=== PATIENT | male | born 2000 | race Caucasian/White ===

== ENCOUNTER 2024-01-26 13:35 | Emergency (ER) | payer OTHER, SELFPAY ==
[2024-01-26 13:44] VITALS: BP 136/81; PULSE 81; RESP 16; TEMP 37.4; O2SAT 100
--- NOTE | 2024-01-26 13:56 | PC.NURSE ---
in br to obtain ua spec.
--- NOTE | 2024-01-26 14:39 | ED_ITS ---
HPI - Male Genitourinary General Chief complaint: Urogenital-Male Stated complaint: STD Exposed Time Seen by Provider: 01/26/24 14:20 Source: patient, RN notes reviewed and old records reviewed Mode of arrival: ambulatory Limitations: no limitations History of Present Illness HPI Narrative: 23year old male presents to express care with concern for exposure to STD. Patient reports that he has no pain with urination or and penis drainage or any discomfort or swelling to testicles. Patient reports that he had unprotected sex about 2 weeks ago and was notified by partner that she tested positive for Trichomoniasis. Patient reports no fevers or any urinary frequency urgency or any foul odor of urine. MD Complaint: possible STD exposure Onset (ago): week(s) (unprotected sexual encounter 2 weeks ago) Associated symptoms: Reports other (none) Related Data Allergies Allergy/AdvReac Type Severity Reaction Status Date / Time No Known Allergies Allergy Verified 01/26/24 13:50 Review of Systems Review of Systems: CONSTITUTIONAL: Denies fever, chills, or sweats. CARDIOVASCULAR: Denies chest pain, palpitations, or edema. RESPIRATORY: Denies cough or dyspnea. GASTROINTESTINAL: Denies abdominal pain, nausea, vomiting, or diarrhea. GENITOURINARY: Reports no dysuria, frequency, urgency. Denies flank pain or hematuria. denies any penile discharge or any discomfort SKIN: Denies rash or itching. MUSCULOSKELETAL: Denies back pain or myalgia. Denies CVA tenderness NEUROLOGIC: Denies headache All systems reviewed & are unremarkable except as noted in HPI and below PMFSH Past Medical History Medical History (Updated 01/28/24 @ 15:07 by Melissa Vasquez NP) Cervical vertebral fracture Fracture of leg Lumbar vertebral fracture Social History Social History (Updated 01/28/24 @ 14:52 by Melissa Vasquez NP) Smoking status: Never smoker Alcohol intake: current Alcohol use details: social Substance use type: does not use Living arrangements: with family Gender identity (if verbalized by the patient): Male Comments At time of signature, agree with nursing past medical, surgical, social and family history. There is no relevant family history pertinent to the presenting complaint Exam Narrative: GENERAL: Well-appearing, well-nourished, and in no acute distress. HEAD: Normocephalic, atraumatic. NECK: Supple.no lymphadenopathy CHEST: Clear to auscultation. No respiratory distress. SAO2 100% on room air HEART: Regular rate and rhythm. No murmur heard. Normal peripheral pulses. ABDOMEN: Soft, nontender, nondistended, normal active bowel sounds. No CVA tenderness, no penis discharge or any pain with urination EXTREMITIES: Normal range of motion. No edema. SKIN: Warm, dry, no rash. NEURO: No focal deficits. Alert and oriented x3. Course Course Emergency Course: Patient is aware of diagnosis, understands and agrees to treatment plan.? Anticipatory guidance given.? Patient agrees to follow-up as directed and is aware of reasons to seek care at the emergency department. Portions of this record may have been created with voice recognition software Level of Care: Express Care Visit Vital Signs Vital signs: Vital Signs Temperature 37.4 C 01/26/24 13:44 Pulse Rate 81 01/26/24 13:44 Respiratory Rate 16 01/26/24 13:44 Blood Pressure 136/81 01/26/24 13:44 Pulse Oximetry 100 01/26/24 13:44 Oxygen Delivery Room Air 01/26/24 13:44 Temperature 37.4 C 01/26/24 13:44 Pulse Rate 81 01/26/24 13:44 Respiratory Rate 16 01/26/24 13:44 Blood Pressure 136/81 01/26/24 13:44 Pulse Oximetry 100 01/26/24 13:44 Oxygen Delivery Room Air 01/26/24 13:44 MDM - Male Genitourinary Differential Diagnosis Differential diagnosis: Likely other (possible exposure to STD, informed by partner of their positive test of trichomoniasis,) Lab Data Attestation: I reviewed the patient's lab results. Lab results narrative: urine dip: Glucose negative bilirubin negative, ketone negative specific gravity greater than or equal to 1.030, blood negative, pH 7.0, protein 1+, urobilinogen 1.0, nitrate negative, leukocyte negative dirty urine sent for STD exposure. Labs: Lab Results 01/26/24 01/26/24 Range/Units 14:26 15:12 POC Urine Color Yellow POC Urine Clarity Clear POC Urine pH 7.0 POC Ur Specif [place] 1.030 POC Urine Protein 1+ (Negative) POC Ur Glucose (UA) Negative (Negative) POC Urine Ketones Negative (Negative) POC Urine Blood Negative (Negative) POC Urine Nitrite Negative (Negative) POC Urine Bilirubin Negative (Negative) POC Urine Urobilinogen 1.0 POC U Leukocyte Esteras Negative (Negative) C. trachomatis (PCR) Not detected (NOT DETECTE) N. gonorrhoeae (PCR) Not detected (NOT DETECTE) T. vaginalis (PCR) Not detected (NOT DETECTE) Critical Care Time Critical Care Time Critical Care Time: No Discharge Plan Discharge Clinical Impression: Possible exposure to STD Patient Disposition: Home, Self-Care Condition: Stable Instructions: Antibiotic Form, Sexually Transmitted Diseases (ED) Additional Instructions: You will be notified of test results and if needed prescriptions will be sent for treatment Make sure to use safe sexual practices use condoms Abstain from any sexual activity the next 2 weeks If you need more comprehensive testing done [facility] If your symptoms persist, change or worsen significantly before you can contact your personal physician then please, without delay, go to the emergency department for further evaluation. Follow-up with PCP in 7-10 days or sooner if needed Follow up with PCP soon in regards to your blood pressure which is elevated above threshold for referral. Blood pressure above 120/80 may indicate pre- hypertension.136/81 Patient Language: Korean Prescriptions: New metronidazole 500 mg tablet 500 mg PO Q12H Qty: 14 0RF Rx Instructions: take for 14 dose must take all of the medication as prescribed absolutely no alcohol while taking this medication. Follow-up/Referrals: PHYSICIAN,[facility]ION[facility]ION SERVICE SPECIALIST [Primary Care Provider] - Time of Disposition: 14:51 Quality Alligator Coma Scale Verbal: Oriented and Alert Motor: Follows Commands
[2024-01-26 15:14] LABS: EDUAAPPEAR Clear; EDUABILI Negative (Negative); EDUABLOOD Negative (Negative); EDUACOLOR1 Yellow; EDUAGLUCOSE Negative (Negative); EDUAKETONE Negative (Negative); EDUALEUKO Negative (Negative); EDUANITRATE Negative (Negative); EDUAPROTEIN 1+ (Negative)
[2024-01-26 17:43] LABS: Trichomonas Vag PCR NOT DETECTED (NOT DETECTE)
[2024-01-26 18:06] LABS: Chlamydia trachomatis NOT DETECTED (NOT DETECTE); Neisseria gonorrhoeae PCR NOT DETECTED (NOT DETECTE)
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
--- OUTSIDE RECORDS SUMMARY | 2024-02-02 20:23 | XMS_ITS | Encounter Summary ---
Author Organization [facility] Address [address] [place] [address] Phone Care Team Providers Care Ekg/Ecg Technician Name Role Phone Rick Smith APRN, KASEY Primary Care Pr ovid Encounter Details Date Type Department Care Team (Late st Contact Info) Description 03/06/2022 Telephone [facility] - Family Medicine [address] [place] [phone] Rick Smith APRN, HOSPITAL MEDICAL BILLER [address] [address] Social History Tobacco Use Types Packs/Day Years [...] on file Sexual Orientation Not on file documented as of this encounter Miscellaneous Notes * Telephone Encounter - Thai Avalos - 03/06/2022 4:29 PM CST Called to pre-visits, left msg F MAINTENANCE SUPERVISOR documented in this encounter Plan of Treatment Not on file documented as of this encounter Visit Diagnoses Not on filedocumented in this encounter Care Teams Ekg/Ecg Technician Relationship Specialty Start Date End Date Rick Smith, C[place], HOSPITAL MEDICAL BILLER [address] [address] PCP - General Advanced Practice Nurse 12/06/21 documented as of this encounter
--- OUTSIDE RECORDS SUMMARY | 2024-02-02 20:23 | XMS_ITS ---
Care Plan - [facility] Created on: February 02, 2024 RACQUEL COPELAND : 2000 Sex: Male Author Organization [facility] Address [address] [place] [address] Phone Care Team Providers Care Director Of Compliance Name Role Phone Unavailable Unavailable Unavailable
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
--- OUTSIDE RECORDS SUMMARY | 2024-02-02 20:23 | XMS_ITS | Clinical Summary ---
Author Organization [facility] Address [address] [place] [address] Phone Care Team Providers Care Purse Framer Name Role Phone Brian Taylor MD Primary Care Provider [phone] Allergies No known active allergies Medications naproxen (NAPROSYN) 500 MG Tablet Take 1 Tablet by mouth 2 times daily (with meals). 60 Tablet 12/06/2021 Active Active Problems Problem Noted Date Diagnosed Date Acute foot pain, right 12/06/2021 Compression fracture of T1 vertebra 12/06/2021 Compression fracture of T2 vertebra 12/06/2021 Immunizations Immunization Administration Dates Next Due DTAP VACCINE 12/14/2000, 1,01/10/2000,1999 DTAP VACCINE, UNSPECIFIED FORMULATION 06/06/2004 Hepatitis A Vaccine,unspecif ied Formulation 05/16/2010 Hepatitis B Vaccine, Pediatric/adolescent 06/12/2000,03/15/2000,1999 Hib Vaccine,unspecified Formulation 10/2000,03/15/2000,01/10/2000,1999 Inactivated Polio Vaccine 06/06/2004,10/2000,01/10/2000,1999 MMR Vaccine 06/06/2004,09/11/2000 Pneumococcal Vaccine Peds - 7 Valent 08/2000,06/12/2000,03/15/2000,1999 TDAP Vaccine 05/16/2010 Varicella Vaccine Live 05/16/2010,09/11/2000 Social History Tobacco Use Types Packs/Day Years [...] on file Sexual Orientation Not on file Last Filed Vital Signs Vital Sign Reading [...] Mass Index 21.28 12/06/2021 1:15 PM CDT Plan of Treatment Health Maintenance Due Date Last Done Comments Hepatitis C Virus (HCV) Screening 1999 Human Papillomavirus (HPV) Immunization (1 - Male 3-dose series) 09/08/2014 DTaP/Tdap/Td Immunization (7 - Td or Tdap) 05/16/2020 05/16/2010, 06/06/2004, 12/14/2000, Additional history exists Influenza Immunization (#1) 2023 SARS-COV-2 Immunization ( season) 2023 Respiratory Syncytial Virus (RSV) Immunization (Adult) (1 - 1-dose 75+ series) 09/08/2074 Hepatitis B Immunization Completed 001, 03/15/2000, 1999 Pneumococcal Immunization Combined Aged Out 09/11/2000, 06/12/2000, 03/15/2000, Additional history exists No longer eligible based on patient's age to complete this topic Meningococcal Immunization (ACWY) Aged Out No longer eligible based on patient's age to complete this topic Rotavirus Immunization Aged Out No lo nger eligible based on patient's age to complete this topic Insurance [employer] [facility] [employer] [facility] Care Teams Purse Framer Relationship Specialty Start Date End Date Brian Taylor MD [address] [address] PCP - General Family Medicine 05/24/23
--- OUTSIDE RECORDS SUMMARY | 2024-02-02 20:23 | XMS_ITS | Clinical Summary ---
Author Organization [facility] Address [address] [place] [address] Phone Care Team Providers Care Bit Setter Name Role Phone Unavailable Unavailable Unavailable Reason for Visit and Chief Complaint The Chief Complaint is: PT STATES THAT HE HAS A SORE THROAT AND A COUGH AND IT STARTED LAST NIGHT Plan of Treatment No Plan of Treatment Recorded Assessments Includes: Assessments from this encounter Findings - Streptococcal sore throat - Last Documented On 05/26/2015 7:30PM ; [facility] - Discharge diagnosis of PRIMARY CARE PROVIDER : COURTNEY - Last Documented On 05/26/2015 7:30PM ; [facility] Medical Equipment - Implanted Devices Includes: Current Devices No Medical Equipment Recorded Medications Includes: Medications discussed during this encounter and other current Medications New / Renewed during this visit TRELL FERREIRA-ALLISON on 05/26/2015 Augmentin 875-125 MG Tablet Provider: TRELL MEJÍA 10 day supply: 20 tablet, 0 refills Diagnosis: Streptococcal pharyngitis One tablet twice a day Pharmacy: [facility] [address], [address] - Last Documented On 6 6:48PM By TRELL MEJÍA ; [facility] Medications Administered Includes: Administered Medications from this encounter No Administered Medications Recorded Vital Signs Includes: Vital Signs from this encounter Vital Name 05/26/2015 06:27P Blood Pressure Sitting (mmHg) 117/78 Pulse Rate-Sitting (bpm) 92 Respiration Rate (breaths/min) 18 Temp-Oral (F) 99.8 Weight (lb) 138 Last Documented: On 05/26/2015 6:33PM ; [facility] Results Includes: Results discussed during this encounter Rapid Strep [facility] Ordered by TRELL ALVARADO [facility] on 05/26/2015 Collected: Reported: 05/26/2015 18:56 Last Documented On 6 6:56PM ; [facility] Reviewed on 05/26/2015; All test results are final unless otherwise noted. Rapid Strep POS A (Abnormal) Last Documented On 6 6:56PM ; [facility] History of Present Illness Includes: History of Present Illness from this encounter HPI REAGAN COPELAND is a 14 year old male. - Medication list reviewed. - No previous history of irregular palpitations. - No diarrhea. - No previous history of complaint of recurrent infections. He has sore throat and dry cough that started last night. He has been running low grade temp. Social History Description Last Updated Child cared for at home 05/26/2015 Last Documented On 6 7:30PM ; [facility] Child not cared for by a stripper latex 05/07 Last Documented On 6 7:30PM ; [facility] Child not enrolled in day-care 6 Last Documented On 6 7:30PM ; [facility] Child not enrolled in preschool 05/26/19 16 Last Documented On 6 7:30PM ; [facility] Currently in school 05/26/2015 Last Documented On 6 7:30PM ; [facility] Currently not being home-schooled 2015 Last Documented On 6 7:30PM ; [facility] Does not live with unmarried father 05/07 Last Documented On 6 7:30PM ; [facility] Housing does not have a well 05/26/2015 Last Documented On 6 7:30PM ; [facility] Housing has city water 05/26/2015 Last Documented On 6 7:30PM ; [facility] Lives with parents 05/26/2015 Last Documented On 6 7:30PM ; [facility] No tobacco use 05/26/2015 Last Documented On 6 7:30PM ; [facility] Not using drugs 05/26/2015 Last Documented On 6 7:30PM ; [facility] Parents not 05/26/2015 Last Documented On 6 7:30PM ; [facility] Parents not 05/26/2015 Last Documented On 6 7:30PM ; [facility] Smoking status : Never smoker 05/26/2015 Last Documented On 6 7:30PM ; [facility] Procedures and Surgical History Includes: Procedures from this encounter Procedures Code Diagnosis Performing Provider Service L ocation Service Date Pt / family were notified that strep pharyngitis testing was POSITIVE. Strep pharyngitis etiology, natural course, possible complications, and treatment options were discussed. Pt will start antibiotic therapy as ordered. Discussed with pt /family that pt is contagious for 24 hours after start of antibiotic therapy and the importance of completing full course of antibiotic therapy. Recommended replacement of oral care products after three days of antibiotic therapy to reduce risk reinoculation with strep. Observe for signs/symptoms of strep in pt contacts. Discussed with pt /family expected course of improvement. Pt may return to activities after completing 24 hours of antibiotic therapy and feel well. Family to call back if not better in 3 days or worsens Last Documented On 6 6:50PM ; [facility] Pt to use OTC fever/pain product as need ed per product instruction.~ Last Documented On 6 6:50PM ; [facility] Pt to use prescription as ordered. Purpo se of and use of medication discussed.~ Last Documented On 6 6:50PM ; [facility] patient to call if symptoms worsen or not improved in 5-7 days to update patient's status Last Documented On 6 6:50PM ; [facility] referred to primary care physician Last Documented On 6 6:49PM ; [facility] Clinical summary provided to patient Last Documented On 6 6:49PM ; [facility] Medical History Includes: Medical History addressed during this encounter Description Last Updated No secondhand cigarette smoke exposure 0 05/26/2015 Last Documented On 6 7:30PM ; [facility] No family history of CAD in father/broth er at age <55 05/26/2015 Last Documented On 6 7:30PM ; [facility] No family history of CAD in mother/siste r at age <65 05/26/2015 Last Documented On 6 7:30PM ; [facility] Frequent sore throats 05/26/2015 Last Documented On 6 7:30PM ; [facility] No chronic illness 05/26/2015 Last Documented On 6 7:30PM ; [facility] No history of asthma 05/26/2015 Last Documented On 6 7:30PM ; [facility] No history of pneumonia 05/26/2015 Last Documented On 6 7:30PM ; [facility] No physical trauma 05/26/2015 Last Documented On 6 7:30PM ; [facility] No previous hospitalizations 05/26/2015 Last Documented On 6 7:30PM ; [facility] No Surgery 05/26/2015 Last Documented On 6 7:30PM ; [facility] Recurrent bacterial ear infections durin g childhood 05/26/2015 Last Documented On 6 7:30PM ; [facility] Family History Includes: Family History addressed during this encounter Description Last Updated Family history of blood pressure was not high 05/26/2015 Last Documented On 6 7:30PM ; [facility] Father 39 years old 05/26/2015 Last Documented On 6 7:30PM ; [facility] Mother 39 years old 05/26/2015 Last Documented On 6 7:30PM ; [facility] No family history of arthritis 6 Last Documented On 6 7:30PM ; [facility] No family history of defects 05/25 Last Documented On 6 7:30PM ; [facility] No family history of bleeding problems 0 05/26/2015 Last Documented On 6 7:30PM ; [facility] No family history of cancer 05/26/2015 Last Documented On 6 7:30PM ; [facility] No family history of convulsions 016 Last Documented On 6 7:30PM ; [facility] No family history of diabetes mellitus 0 05/26/2015 Last Documented On 6 7:30PM ; [facility] No family history of ischemic heart dise ase before age 50 05/26/2015 Last Documented On 6 7:30PM ; [facility] No family history of stroke syndrome Last Documented On 6 7:30PM ; [facility] Review of Systems Includes: Review of Systems from this encounter Systemic: Not feeling tired (fatigue). Fever. Head: Headache. No sinus pressure. Eyes: No eye symptoms. Otolaryngeal: Earache in both ears. No nasal discharge, no postnasal drip, and no nasal passage blockage (stuffiness). Sore throat. Cardiovascular: No chest pain or discomfort. No previous history of chest pain or discomfort. Pulmonary: Not feeling congested in the chest. Cough. Not coughing up sputum and no wheezing. Gastrointestinal: No gastrointestinal symptoms, no nausea, and no vomiting. Musculoskeletal: No musculoskeletal symptoms. Neurological: No dizziness. No previous history of convulsions. Skin: No skin lesions. Mental Status Includes: Mental Status from this encounter No Mental Status Recorded Functional Status Includes: Functional Status from this encounter No Functional Status Recorded Physical Exam Includes: Physical Exam from this encounter Allergies Includes: Active Allergies No Known Allergies Encounters Encounter Provider Location Date Check-In Time Check-Out Time Diagnosis SICK VISIT TRELL ALVARADO [employer]PER[employer] 6 6:30PM 6:50PM Discharge Diagnosis of Primary Care Provider,Stre ptococcal Sore Throat Clinical Notes Includes: Clinical Notes from this encounter No Clinical Notes Recorded
--- OUTSIDE RECORDS SUMMARY | 2024-02-02 20:23 | XMS_ITS ---
Author Organization [facility] Address [address] [place] [address] Phone Care Team Providers Care Regional Agronomist Name Role Phone Unavailable Unavailable Unavailable Plan of Treatment No Plan of Treatment Recorded Assessments Includes: Assessments for all patient encounters Findings Encounter Date Discharge diagnosis of PRIMA RY CARE PROVIDER : MUELLAR SICK VISIT with TRELL FERREIRA-ALLISON 05/26/2015 Last Documented On 6 7:30PM ; [facility] Streptococcal sore throat SICK VISIT with RADHA ALVARADO [facility] 05/26/2015 Last Documented On 6 7:30PM ; [facility] Medical Equipment - Implanted Devices Includes: Current and historical Devices No Medical Equipment Recorded Medications Includes: Current and historical Medications Current Medications (continue as prescribed) Augmentin 875-125 MG Tablet 05/26/2015 Provider: TRELL MEJÍA Diagnosis: Streptococcal ph aryngitis One tablet twice a day Last Documented On 6 6:48PM By TRELL ALVARADO [facility] ; [facility] Medications Administered Includes: Administered Medications in patient's chart No Administered Medications Recorded Results Includes: Results from 02/01/2023 through 02/02/2024 No Results Recorded For Specified Dates History of Present Illness History of Present Illness not supported for this document type No History of Present Illness Recorded Social History Description Last Updated Child cared for at home 05/26/2015 Last Documented On 6 7:30PM ; [facility] Child not cared for by a chief projectionist 05/07 Last Documented On 6 7:30PM ; [facility] Child not enrolled in day-care 6 Last Documented On 6 7:30PM ; [facility] Child not enrolled in preschool 05/26/19 16 Last Documented On 6 7:30PM ; [facility] Currently in school 05/26/2015 Last Documented On 6 7:30PM ; [facility] Currently not being home-schooled 2015 Last Documented On 6 7:30PM ; [facility] Does not live with unmarried father 05/07 Last Documented On 6 7:30PM ; [facility] Housing does not have a well 05/26/2015 Last Documented On 6 7:30PM ; [facility] Housing has city water 05/26/2015 Last Documented On 6 7:30PM ; [facility] Lives with parents 05/26/2015 Last Documented On 6 7:30PM ; [facility] No tobacco use 05/26/2015 Last Documented On 6 7:30PM ; [facility] Not using drugs 05/26/2015 Last Documented On 6 7:30PM ; [facility] Parents not 05/26/2015 Last Documented On 6 7:30PM ; [facility] Parents not 05/26/2015 Last Documented On 6 7:30PM ; [facility] Smoking status : Never smoker 05/26/2015 Last Documented On 6 7:30PM ; [facility] Medical History Includes: Medical History in patient's chart Description Last Updated No secondhand cigarette smoke exposure 0 05/26/2015 Last Documented On 6 7:30PM ; [facility] No family history of CAD in father/broth er at age <55 05/26/2015 Last Documented On 6 7:30PM ; [facility] No family history of CAD in mother/siste r at age <65 05/26/2015 Last Documented On 6 7:30PM ; [facility] Frequent sore throats 05/26/2015 Last Documented On 6 7:30PM ; [facility] No chronic illness 05/26/2015 Last Documented On 6 7:30PM ; [facility] No history of asthma 05/26/2015 Last Documented On 6 7:30PM ; [facility] No history of pneumonia 05/26/2015 Last Documented On 6 7:30PM ; [facility] No physical trauma 05/26/2015 Last Documented On 6 7:30PM ; [facility] No previous hospitalizations 05/26/2015 Last Documented On 6 7:30PM ; [facility] No Surgery 05/26/2015 Last Documented On 6 7:30PM ; [facility] Recurrent bacterial ear infections durin g childhood 05/26/2015 Last Documented On 6 7:30PM ; [facility] Family History Includes: Family History in patient's chart Description Last Updated Family history of blood pressure was not high 05/26/2015 Last Documented On 6 7:30PM ; [facility] Father 39 years old 05/26/2015 Last Documented On 6 7:30PM ; [facility] Mother 39 years old 05/26/2015 Last Documented On 6 7:30PM ; [facility] No family history of arthritis 6 Last Documented On 6 7:30PM ; [facility] No family history of defects 05/25 Last Documented On 6 7:30PM ; [facility] No family history of bleeding problems 0 05/26/2015 Last Documented On 6 7:30PM ; [facility] No family history of cancer 05/26/2015 Last Documented On 6 7:30PM ; [facility] No family history of convulsions 016 Last Documented On 6 7:30PM ; [facility] No family history of diabetes mellitus 0 05/26/2015 Last Documented On 6 7:30PM ; [facility] No family history of ischemic heart dise ase before age 50 05/26/2015 Last Documented On 6 7:30PM ; [facility] No family history of stroke syndrome Last Documented On 6 7:30PM ; [facility] Review of Systems Review of Systems not supported for this document type No Review of Systems Recorded Mental Status No Mental Status Recorded Functional Status No Functional Status Recorded Physical Exam Physical Exam not supported for this document type No Physical Exam Recorded Allergies Includes: Active, inactive, and resolved Allergies No Known Allergies Clinical Notes Includes: Signed Clinical Notes starting from 02/24/2022 No Clinical Notes Recorded
--- OUTSIDE RECORDS SUMMARY | 2024-02-02 20:23 | XMS_ITS | Encounter Summary ---
Author Organization [facility] Address [address] [place] [address] Phone Care Team Providers Care Textile Conservator Name Role Phone Provider, None Primary Care Provider Unavailabl e Reason for Visit * Reason Onset Date Comments New Patient 12/05/2021 Encounter Details Date Type Department Care Team ([facility] st Contact Info) Description 12/05/2021 Telephone [facility] [address] [place] [address] Provider, None [place] New Patient Social History Tobacco Use Types Packs/Day Years [...] suspected to have Coronavirus/COVID-19? No / Unsure 12/05/2021 12:10 PM CDT documented as of this encounter Miscellaneous Notes * Telephone Encounter - Nicki Sierra - 12/05/2021 12:12 PM CDT Scheduled. * Telephone Encounter - Nicki Sierra - 12/05/2021 12:09 PM CDT ----- Message from Deanna Serna sent at 12/05/2021 12:05 PM CDT ----- Regarding: Establish Care / ED Follow up [facility] Primary Provider Request Insurance of patient: [facility] Name of person calling: Titus Michelle Relationship to patient: self Preferred phone number: [phone] Alternate phone number: n/a Region / Office location preference: [facility] Provider preference (male/female, specific provider name): Dr. Taylor or Dr. Rosales Willing to see someone other than physician, such as DENTAL AMALGAM PROCESSOR, [place], resident? Yes Patient reason for appointment/any current symptoms: Ed Follow up / compression fracture on vertebrae Other information (including need for hospital aides and assistants teacher): No documented in this encounter Plan of Treatment Not on file documented as of this encounter Visit Diagnoses Not on filedocumented in this encounter Care Teams Textile Conservator Relationship Specialty Start Date End Date Provider, Zane PENA PCP - General 06/09/18 12/05/21 documented as of this encounter
--- OUTSIDE RECORDS SUMMARY | 2024-02-02 20:23 | XMS_ITS | Encounter Summary ---
Author Organization [facility] [employer] [facility] Care Team Providers Care Senior Process Engineer Name Role Phone Provider, None Primary Care Provider Unavailabl e Encounter Details Date Type Department Care Team (Latest Contact Info) Description 11/28/2021 Travel Social History Tobacco Use Types Packs/Day Years [...] AM CDT documented as of this encounter Plan of Treatment Not on file documented as of this encounter Visit Diagnoses Not on filedocumented in this encounter Care Teams Senior Process Engineer Relationship Specialty Start Date End Date Provider, Zane PENA PCP - General 06/09/18 12/05/21 documented as of this encounter
--- OUTSIDE RECORDS SUMMARY | 2024-02-02 20:23 | XMS_ITS | Encounter Summary ---
Author Organization [facility] [employer] [facility] Care Team Providers Care Copyright Clerk Name Role Phone Provider, None Primary Care Provider Unavailabl e Encounter Details Date Type Department Care Team (Latest Contact Info) Description 12/05/2021 Travel Social History Tobacco Use Types Packs/Day [...] PM CDT documented as of this encounter Plan of Treatment Not on file documented as of this encounter Visit Diagnoses Not on filedocumented in this encounter Care Teams Copyright Clerk Relationship Specialty Start Date End Date Provider, Zane PENA PCP - General 06/09/18 12/05/21 documented as of this encounter
--- OUTSIDE RECORDS SUMMARY | 2024-02-02 20:23 | XMS_ITS | Encounter Summary ---
Author Organization [facility] Address [address] [place] [address] Phone Care Team Providers Care Appointment Coordinator Name Role Phone Rick Smith APRN, KASEY Primary Care Pr ovid Encounter Details Date Type Department Care Team (Late st Contact Info) Description 01/30/2022 Telephone [facility] - Family Medicine [facility] [address] [place] [address] Brian Taylor MD [address] [address] Social History Tobacco Use Types Packs/Day Years [...] encounter Miscellaneous Notes * Telephone Encounter - Brian Taylor MD - 01/31/2022 10:40 AM BUILDING CUSTODIAL SUPERVISOR DONE. DING CUSTODIAL SUPERVISOR documented in this encounter Plan of Treatment Not on file documented as of this encounter Visit Diagnoses Not on filedocumented in this encounter Care Teams Appointment Coordinator Relationship Specialty Start Date End Date Rick Smith APRN, PROGRAM AIDE [address] [place] [id number] PCP - General Advanced Practice Nurse 12/06/21 documented as of this encounter
--- OUTSIDE RECORDS SUMMARY | 2024-02-02 20:23 | XMS_ITS | Encounter Summary ---
Author Organization [employer] Care Team Providers Care Dragger Name Role Phone Rick Smith APRN, CNP Primary Care Pr ovider Encounter Details Date Type Department Care Team (Latest Contact Info) Description 12/06/2021 Travel Social History Tobacco Use Types Packs/Day [...] on filedocumented in this encounter Care Teams Dragger Relationship Specialty Start Date End Date Rick Smith APRN, CNP #[address] [address] PCP - General Advanced Practice Nurse 12/06/21 documented as of this encounter
--- OUTSIDE RECORDS SUMMARY | 2024-02-02 20:23 | XMS_ITS | Encounter Summary ---
Author Organization [facility] Address [address] [place] [address] Phone Care Team Providers Care Milieu Technician Name Role Phone Rick Smith APRN, PAVING BLOCK CUTTER Primary Care Pr [facility] Reason for Visit * Reason Onset Date Comments Results 12/14/2021 Encounter Details Date Type Department Care Team (Late st Contact Info) Description 12/14/2021 Telephone [facility] [address] [place] [address] Rick Smith APRN, PAVING BLOCK CUTTER [address] [address] Results Social History Tobacco Use Types Packs/Day Years [...] encounter Miscellaneous Notes * Telephone Encounter - Vandana Chandler RN - 12/14/2021 2:27 PM CST Patient is calling for his X ray results from last week. Advised of no fractures and caller verbalizes understanding. HEALTH CARE RESPIRATORY THERAPIST documented in this encounter Plan of Treatment Not on file documented as of this encounter Visit Diagnoses Not on filedocumented in this encounter Care Teams Milieu Technician Relationship Specialty Start Date End Date Rick Smith APRN, PAVING BLOCK CUTTER [address] [address] PCP - General Advanced Practice Nurse 12/06/21 documented as of this encounter
== END 2024-01-26 14:58 | disposition home or self-care (01) ==
PROVIDERS: Emergency Provider Registered Nurse
DX: Z11.3 Encounter for screening for infections with a predominantly sexual mode of transmission (principal)
CPT/HCPCS: 81003; 87491; 87591; 87661; 99213; G0463